=== PATIENT | female | born 2000 | race Caucasian/White ===

== ENCOUNTER 2024-02-02 16:56 | Outpatient (CLI) | payer MEDICAID | END 2024-02-02 23:59 | disposition home or self-care (01) | LOC: RAD 16:56 | DX: S59.902A Unspecified injury of left elbow, initial encounter (principal); M25.522 Pain in left elbow; X58.XXXA Exposure to other specified factors, initial encounter; Y93.89 Activity, other specified; Y92.89 Other specified places as the place of occurrence of the external cause; Y99.8 Other external cause status | CPT/HCPCS: 73080 ==

== ENCOUNTER 2024-05-26 17:19 | Emergency (ER) | payer MEDICAID ==
[~2024-05-26] VITALS: Ht 154.9 cm; Wt 64.0 kg
[2024-05-26 17:20] VITALS: TEMP 98
[2024-05-26 17:37] VITALS: BP 106/63; PULSE 69; RESP 16; O2SAT 97
== END 2024-05-26 17:42 | disposition home or self-care (01) ==
LOC: ER 17:20
DX: M77.12 Lateral epicondylitis, left elbow (principal)
CPT/HCPCS: 99284